=== PATIENT | female | born 1950 | race Two or more races ===

== ENCOUNTER 2019-05-11 16:48 | Inpatient (IN) | payer OTHER ==
[~2019-05-11] VITALS: Ht 170.2 cm; Wt 69.9 kg
[2019-05-29] MEDS ORDERED: NORVASC5 MG PO (11:51)
[2019-05-29] MEDS ORDERED: ZANTAC300 MG PO (11:52)
[2019-05-29] MEDS ORDERED: LOPRESSOR25 MG PO (11:52)
[2019-05-29] MEDS ORDERED: PANADOL EXTRA500 MG PO (11:52)
[2019-05-29] MEDS ORDERED: PROTONIX40 MG PO (11:52)
[2019-06-09] MEDS ORDERED: OMEPRAZOLE20 M2 PO (07:07)
[2019-06-09] MEDS ORDERED: PERCOCET 5-3251 EACH PO (07:07)
== END 2019-06-09 14:09 | disposition home or self-care (01) | DRG 331 ==
LOC: SURG 05-29 10:30 → O/R 06-06 06:05 → SURH 06-06 06:05 → SURG 06-06 07:00 → SURH 06-06 15:54
PROVIDERS: ADMIT Surgery
PROC: 0DJD8ZZ Inspection of Lower Intestinal Tract, Via Natural or Artificial Opening Endoscopic (ICD-10-PCS; 2019-06-06)
PROC: 0DTN4ZZ Resection of Sigmoid Colon, Percutaneous Endoscopic Approach (ICD-10-PCS; principal; 2019-06-06 07:00)
DX: K57.32 Diverticulitis of large intestine without perforation or abscess without bleeding (principal); R10.32 Left lower quadrant pain

== ENCOUNTER → 2021-02-17 08:00 | Outpatient (CLI) | payer OTHER ==
[~2021-02-17 08:00] MED LIST: LOPRESSOR25 MG PO; NORVASC5 MG PO; OMEPRAZOLE20 M2 PO; PANADOL EXTRA500 MG PO; PERCOCET 5-3251 EACH PO; PROTONIX40 MG PO; ZANTAC300 MG PO
== END | disposition home or self-care (01) ==
LOC: LAB 08:00 → ADM 13:15 → EDSTATUS 02-24 13:15 → AMB-ENDOS 02-24 13:15
PROVIDERS: ATTEND Surgery
DX: K57.32 Diverticulitis of large intestine without perforation or abscess without bleeding (principal); R10.32 Left lower quadrant pain; Z03.818 Encounter for observation for suspected exposure to other biological agents ruled out